=== PATIENT | female | born 1945 | race Caucasian/White ===

== ENCOUNTER → 2018-05-04 | Outpatient (CLI) | payer MEDICARE, OTHER ==
[~2018-05-04] MED LIST: ANTIVERT25 MG PO; ZOFRAN ODT4 MG PO
== END ==
LOC: M.RAD 14:00
DX: Z12.31 Encounter for screening mammogram for malignant neoplasm of breast (principal)

== ENCOUNTER 2018-09-15 07:29 | Emergency (ER) | payer MEDICARE, OTHER ==
[~2018-09-15] VITALS: Ht 157.5 cm; Wt 49.0 kg
[2018-09-15] MEDS ORDERED: NORCO 5-325 TA1 EACH PO (07:53)
[2018-09-15] MEDS ORDERED: FLEXERIL PO (07:53)
[2018-09-15] MEDS ORDERED: PREDNISONE 20 M20 M1 PO (07:53)
[2018-09-15 07:59] VITALS: BP 132/80
== END 2018-09-15 08:09 | disposition home or self-care (01) ==
LOC: M.ERS 07:29
DX: M54.31 Sciatica, right side (principal); M19.90 Unspecified osteoarthritis, unspecified site; Z90.710 Acquired absence of both cervix and uterus; Z85.118 Personal history of other malignant neoplasm of bronchus and lung

== ENCOUNTER → 2019-06-30 | Outpatient (CLI) | payer MEDICARE, OTHER ==
[~2019-06-30] MED LIST changes: +FLEXERIL PO; +NORCO 5-325 TA1 EACH PO; +PREDNISONE 20 M20 M1 PO
[2019-07-02 11:11] LABS: GLIADIN IGA AB 4 units (0-19)
== END ==
LOC: M.LAB 10:07
PROVIDERS: Nurse Practitioner Family
DX: R19.7 Diarrhea, unspecified (principal)

== ENCOUNTER → 2020-05-23 | Outpatient (CLI) | payer MEDICARE, OTHER | LOC: M.MRI 05-16 07:30 | PROVIDERS: ATTEND Registered Nurse Diabetes Educator | DX: I67.82 Cerebral ischemia (principal); R41.3 Other amnesia; R42 Dizziness and giddiness; Z79.899 Other long term (current) drug therapy ==

== ENCOUNTER 2021-07-20 01:18 | Inpatient (IN) | payer MEDICARE, OTHER ==
[~2021-07-20] VITALS: Ht 157.5 cm; Wt 52.2 kg
--- NOTE | ~2021-07-20 | EKG ---
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[place] : 1945 Requested By: Constanza Lehman Order Number: [id number] MD: Measurements Intervals [place] Rate: 117 P: [place]: QRS: 88 QRSD: 81 T: 34 QT: 354 QTc: 494 Interpretive Statements Atrial fibrillation Paired ventricular premature complexes Aberrant conduction of SV complex(es) Borderline right axis deviation Borderline low voltage, extremity leads Borderline prolonged QT interval Baseline wander in lead(s) I,aVL Compared to ECG 07/20/2021 01:36:10 Ventricular premature complex(es) now present Aberrant conduction of supraventricular beat(s) now present ST (T wave) deviation no longer present [email or web address] By: 1 1 Epiphany EpiphanyMD /RADAMES
--- NOTE | ~2021-07-20 | EKG ---
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
[2021-07-20 01:29] VITALS: BP 141/66
[2021-07-20 03:16] LABS: ABSOLUTE LYMPHOCYTES 1.6 thou/uL (0.8-5.3); ABSOLUTE MONOCYTES 1.1 thou/uL (0.0-1.2); ABSOLUTE NEUTROPHILS 10.9 thou/uL (1.6-8.1); BASOPHILS 0.2 %; EOSINOPHILS 0.3 %; HEMATOCRIT 42.4 % (37.0-47.0); HEMOGLOBIN 14.4 gm/dL (12.0-15.0); LYMPHOCYTES 11.8 %; MCH 30.6 pg (26.0-34.0); MCV 90.1 fL (80.0-100.0); MONOCYTES 7.9 %; MPV 7.9 fl. (7.2-11.1); NUCLEATED RBCS 0 /100WBC; PLATELET COUNT* 237 thou/uL (150-400); POLYS 79.8 %; RBC 4.71 mil/uL (4.20-5.00); RDW-CV 13.1 % (10.5-14.5); WBC 13.6 thou/uL (4.0-11.0)
[2021-07-20 03:24] LABS: APTT 22.9 Seconds (25.0-31.3); PROTIME 10.3 Seconds (9.20-11.50)
[2021-07-20 03:35] LABS: CALCIUM 8.8 mg/dL (8.5-10.1); CREATININE 0.9 mg/dL (0.6-1.3); POTASSIUM 3.4 mmol/L (3.5-5.1)
[2021-07-20 03:45] LABS: ALBUMIN 3.8 g/dL (3.4-5.0); TOTAL BILIRUBIN 0.4 mg/dL (<0.1-1.0); TOTAL PROTEIN 6.9 g/dL (6.4-8.2)
[2021-07-20 04:46] LABS: URINE BILIRUBIN NEGATIVE (Negative); URINE BLOOD NEGATIVE (Negative); URINE CLARITY CLEAR; URINE COLOR YELLOW; URINE GLUCOSE-RANDOM NEGATIVE (Negative); URINE KETONES NEGATIVE (Negative); URINE LEUKOCYTES-REFLEX NEGATIVE (Negative); URINE NITRITE-REFLEX NEGATIVE (Negative); URINE PROTEIN NEGATIVE (Negative); URINE UROBILINOGEN 0.2 E.U./dl (0.2-1.0)
[2021-07-20 07:30] VITALS: BP 97/40
--- NOTE | 2021-07-20 09:59 | EKG ---
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 : 1945 Requested By: Constanza Lehman Order Number: [id number] MD: Jesse Garvin Measurements Intervals [place] Rate: 116 P: [place]: QRS: 84 QRSD: 83 T: 21 QT: 356 QTc: 495 Interpretive Statements Atrial fibrillation Borderline right axis deviation Minimal ST depression, diffuse leads Borderline prolonged QT interval Compared to ECG 09/22/2017 09:19:43 ST (T wave) deviation now present Sinus rhythm no longer present Electronically Signed On 07-20-2021 9:59:46 CDT by Jesse Garvin [email or web address] <ELECTRONICALLY SIGNED> By: Jesse Garvin MD, FACC 07/20/21 0959 5 5 Jesse Garvin MD, FAC /EPI
[2021-07-20 11:30] VITALS: BP 106/44
[2021-07-20] MEDS ORDERED: ASA81BEC PO (14:46)
[2021-07-20] MEDS ORDERED: FLECAINIDE ACET50 M1 PO (14:46)
[2021-07-20 15:30] VITALS: BP 105/41
--- NOTE | 2021-07-20 17:09 | EKG ---
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 : 1945 Requested By: Jesse Garvin Order Number: [id number] Reading MD: Jesse Garvin Measurements Intervals [place] Rate: 117 P: [place]: QRS: 88 QRSD: 81 T: 34 QT: 354 QTc: 494 Interpretive Statements Atrial fibrillation Borderline right axis deviation Borderline low voltage, extremity leads Borderline prolonged QT interval Baseline wander in lead(s) I,aVL Compared to ECG 07/20/2021 01:36:10 no change Electronically Signed On 07-20-2021 17:09:16 CDT by Jesse Garvin [email or web address] <ELECTRONICALLY SIGNED> By: Jesse Garvin MD, FACC 07/20/21 1709 1 1 Jesse Garvin MD, FACC /EPI
--- NOTE | 2021-07-20 18:33 | 2DMMODE ---
[place] [address] 2 D/M-MODE ECHOCARDIOGRAM Name: VILMA TESFAYE Room: [place] [address] ADM IN Rober.#: [id number] Admission: 07/20/21 Attend Phys: Tyson Patel Discharge: Date of : 45 Date of Service: 07/20/21 183 Report #: [id number] THIS REPORT FOR: cc: Mini Del Real Tammy RNP Blick, David R. MD [facility] ~ APPROVED REPORT Study performed: 07/20/2021 14:21:32 EXAM: Comprehensive 2D, Doppler, and color-flow Echocardiogram Patient Location: In-Patient Room #: er Status: routine BSA: 1.51 HR: 64 bpm BP: 106/44 mmHg Rhythm: NSR Other Information Study Quality: Good Indications Atrial Fibrillation 2D Dimensions IVSd: 10.26 (7-11mm) LVOT Diam: 19.93 (18-24mm) LVDd: 36.88 mm PWd: 9.57 (7-11mm) Ascending Ao: 29.41 (22-36mm) LVDs: 21.45 (25-40mm) Aortic Root: 27.21 mm Volumes Left Atrial Volume (Systole) LA ESV Index: 19.90 mL/m2 Aortic Valve AoV Peak Isaias.: 1.14 m/s AO Peak Gr.: 5.22 mmHg LVOT Max P.46 mmHg AO Mean Gr.: 2.71 mmHg LVOT Mean P.40 mmHg LVOT Max V: 1.27 m/s AO V2 VTI: 23.80 cm LVOT Mean V: 0.68 m/s ZENA (VTI): 3.39 cm2 LVOT V1 VTI: 25.85 [place] [address] 2 D/M-MODE ECHOCARDIOGRAM Name: VILMA TESFAYE Room: [address] IN [facility].#: [id number] Admission: 07/20/21 Attend Phys: Tyson Patel Discharge: Date of : 45 Date of Service: 07/20/21 1832 Report #: [id number] Mitral Valve E/A Ratio: 1.02 MV Decel. Time: 221.70 ms MV E Max Isaias.: 0.95 m/s MV PHT: 64.29 ms MVA (PHT): 3.42 cm2 TDI E/Lateral E': 10.56 E/Medial E': 8.64 Medial E' Isaias.: 0.11 m/s Lateral E' Isaias.: 0.09 m/s Pulmonary Valve PV Peak Isaias.: 0.74 m/s PV Peak Gr.: 2.21 mmHg Tricuspid Valve RAP Estimate: 5.00 mmHg TR Peak Gr.: 21.23 mmHg RVSP: 26.00 mmHg PA Pressure: 26.00 mmHg Left Ventricle The left ventricle is normal size. There is normal LV segmental wall motion. There is normal left ventricular wall thickness. Left ventricular systolic function is normal. The left ventricular ejection fraction is within the normal range. LVEF is 55-60%. The left ventricular diastolic function is normal. Right Ventricle The right ventricle is normal size. The right ventricular systolic function is normal. Atria The left atrium size is normal. The right atrium size is normal. Aortic Valve The aortic valve is normal in structure. No aortic regurgitation is present. There is no aortic valvular stenosis. Mitral Valve The mitral valve is normal in structure. There is no mitral valve regurgitation noted. No evidence of mitral valve stenosis. Tricuspid Valve The tricuspid valve is normal in structure. Trace tricuspid regurgitation. [place] [address] 2 D/M-MODE ECHOCARDIOGRAM Name: VILMA TESFAYE Room: [address] IN [facility]#: [id number] Admission: 07/20/21 Attend Phys: Tyson Patel Discharge: Date of : 45 Date of Service: 07/20/21 1832 Report #: [id number] Pulmonic Valve Pulmonic valve is not well visualized. There is no pulmonic valvular regurgitation. Great Vessels The aortic root is normal in size. IVC is normal in size and collapses >50% with inspiration. Pericardium There is no pericardial effusion. <Conclusion> Left ventricular systolic function is normal. The left ventricular ejection fraction is within the normal range. <ELECTRONICALLY SIGNED> By: Jesse Garvin MD, FACC 07/20/211831 31 31 Jesse Garvin MD, FACC /INF
[2021-07-20 19:25] VITALS: BP 130/57
--- NOTE | 2021-07-21 10:03 | CON ---
[address] [address] CONSULTATION Name: VILMA TESFAYE Room: [address] IN M.R.#: [id number] Admission: 07/20/21 Attend Phys: Majo Ferguson Discharge: 07/20/21 Date of : 45 Report #: [id number] THIS REPORT FOR: cc: Mini Del Real Tammy RNP Blick, David R. MD [facility] ~ cc: Mini Del Real NP DATE OF CONSULTATION: 07/20/2021 CARDIOLOGY CONSULTATION HISTORY OF PRESENT ILLNESS: The patient is a 76-year-old single white female who I was asked to see in the Emergency Room today after she was noted to be in atrial fibrillation. The history was obtained from the patient. Unfortunately, there are no family members available. There are no old records. The patient does have problems with memory. She was brought to the Emergency Room last night by family members. She has been weak, having loose stools. She worked out in the yard yesterday. She felt fatigued, had no appetite. When she came to the Emergency Room, she complained of nausea. She was noted to be in atrial fibrillation. Cardiology consultation requested. PAST MEDICAL HISTORY: She has had previous hysterectomy. She apparently has a history of lung cancer and had a right upper lobectomy. She has had tonsillectomy. She has seen a neurologist in the past for memory issues. CURRENT MEDICATIONS: Apparently consist of a memory pill and hydrocodone. ALLERGIES: She has no known drug allergies. FAMILY HISTORY: Negative for heart disease. SOCIAL HISTORY: She is , lives in a residential center here in [place]. Quit smoking years ago. No alcohol abuse. REVIEW OF SYSTEMS: She has had no history of stroke, asthma, liver disease, kidney disease. She has a history of lung cancer. No chronic skin condition. PHYSICAL EXAMINATION: GENERAL: Revealed an elderly female who appears in no acute distress, lying in bed in the Emergency Room. VITAL SIGNS: Her blood pressure 100/60, pulse is now 70. She is afebrile. HEENT: She was anicteric. Conjunctivae pink. Mucous membranes moist. NECK: Veins do not appear distended. No carotid bruits. Neck is supple. CHEST: [place] [address] CONSULTATION Name: VILMA TESFAYE Room: [address]#: [id number] Admission: 07/20/21 Attend Phys: Majo Ferguson Discharge: 07/20/21 Date of : 45 Report #: [id number] CARDIAC: ____ rate and rhythm. ____ murmur. ABDOMEN: Soft. EXTREMITIES: Had no edema. Posterior tibial pulse 2+ bilaterally. SKIN: Cool and dry. NEUROLOGIC: Nonfocal. IMAGING DATA: ECG on admission showed atrial fibrillation with an increased ventricular response rate, nonspecific ST segment changes. Currently, the patient appears to be in a sinus rhythm. Her workup in the Emergency Room last night, she had actually a previous MRI of the head a year ago in 2019 that showed chronic small vessel changes. No evidence of previous infarction. She had a portable chest x-ray in the Emergency Room that showed no acute abnormality. LABORATORY WORK: Creatinine 0.9. She had a TSH in 2019 was 2.4, T4 of 6.7. Hemoglobin 14.4. COVID antigen stat test was negative. Urinalysis negative for protein, negative for leukocytes. IMPRESSION AND RECOMMENDATIONS: 1. Atrial fibrillation. I would check thyroid function studies, echocardiogram. I would consider starting the patient on flecainide. The patient does not appear to be a very good candidate for anticoagulation. 2. Memory loss. Concerned about dementia. 3. Previous tobacco abuse. 4. Hypokalemia. Possibly related to diarrhea. <ELECTRONICALLY SIGNED> By: Jesse Garvin MD, FACC 07/21/21 1003 0831 1033Devette Garvin MD, FACC /nt
--- NOTE | 2021-07-21 10:15 | EKG ---
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
--- NOTE | 2021-07-21 10:16 | EKG ---
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 : 1945 Requested By: Tyson Patel Order Number: [id number] Reading MD: Jesse Garvin Measurements Intervals [place] Rate: 117 P: [place]: QRS: 88 QRSD: 81 T: 34 QT: 354 QTc: 494 Interpretive Statements Atrial fibrillation Borderline right axis deviation Borderline low voltage, extremity leads Borderline prolonged QT interval Baseline wander in lead(s) I,aVL Electronically Signed On 07-20-2021 17:09:16 CDT by Jesse Garvin Compared to ECG 07/20/2021 01:36:10 no change Electronically Signed On 07-21-2021 10:15:59 CDT by Jesse Garvin [email or web address] <ELECTRONICALLY SIGNED> By: Jesse Garvin MD, [facility] 07/21/21 1015 1 1 Jesse Garvin MD, [facility] /EPI
== END 2021-07-20 19:30 | disposition home or self-care (01) | DRG 309 ==
LOC: M.ERS 01:18 → M.TBA-ER 04:30
PROVIDERS: Personal Emergency Response Attendant; ADMIT Internal Medicine; ATTEND Internal Medicine
DX: I48.91 Unspecified atrial fibrillation (principal); D68.69 Other thrombophilia; M19.90 Unspecified osteoarthritis, unspecified site; R41.3 Other amnesia; E87.6 Hypokalemia; Z20.822 Contact with and (suspected) exposure to COVID-19; Z90.710 Acquired absence of both cervix and uterus; Z85.118 Personal history of other malignant neoplasm of bronchus and lung; Z87.891 Personal history of nicotine dependence

== ENCOUNTER → 2021-09-06 | Outpatient (CLI) | payer MEDICARE, OTHER ==
[~2021-09-06] MED LIST changes: +ASA81BEC PO; +FLECAINIDE ACET50 M1 PO
== END ==
LOC: M.MRI 08-28 10:33
PROVIDERS: ATTEND Registered Nurse Diabetes Educator
DX: Z12.31 Encounter for screening mammogram for malignant neoplasm of breast (principal); I67.82 Cerebral ischemia; M85.88 Other specified disorders of bone density and structure, other site; M81.0 Age-related osteoporosis without current pathological fracture; F03.91 Unspecified dementia, unspecified severity, with behavioral disturbance; Z78.0 Asymptomatic menopausal state